=== PATIENT | male | born 1970 ===

== ENCOUNTER 2019-05-12 06:40 | Inpatient (IN) | payer MEDICARE, BC ==
[~2019-05-12] VITALS: Ht 175.3 cm; Wt 118.6 kg
[~2019-05-12 06:40] MED LIST: CHOL100012 PO; FOLI0.8T7 PO; LISI40TA PO; METO-99 PO; SEVE800T8 PO
[2019-05-12 07:27] VITALS: BP 134/85
[2019-05-12] MEDS ORDERED: THROMBIN 20,000 UNIT VIAL TP ONE (07:29)
[2019-05-12] MEDS ORDERED: HEPARIN 1,000 UNITS/ML, 10ML ONE ×2 (07:29→13:54)
[2019-05-12] MEDS ORDERED: PAPAVERINE 30 MG/ML, 2ML ONE (07:29)
[2019-05-12] MEDS ORDERED: BACITRACIN 50,000 UNIT ONE (07:29)
[2019-05-12] MEDS ORDERED: BUPIVACAINE/PF-EPI 0.5% 1:200K ONE (07:31)
[2019-05-12] MEDS ORDERED: FENTANYL PF 250 MCG/5ML ONE (08:12)
[2019-05-12] MEDS ORDERED: MIDAZOLAM 1 MG/ML, 2ML ONE (08:12)
[2019-05-12] MEDS ORDERED: CINA60TA PO (08:21)
[2019-05-12] MEDS ORDERED: HYDR-3240 PO (08:21)
[2019-05-12] MEDS ORDERED: GLYB5TAB3 PO (08:21)
[2019-05-12] MEDS ORDERED: ASPI-515 PO (08:21)
[2019-05-12] MEDS ORDERED: DOCU-131 PO (08:21)
[2019-05-12] MEDS ORDERED: ATOR-2 PO (08:21)
[2019-05-12] MEDS ORDERED: epogen (08:21)
[2019-05-12] MEDS ORDERED: OMEP-110 PO (08:21)
[2019-05-12] MEDS ORDERED: CALC667C PO (08:21)
[2019-05-12 08:32] LABS: BASOPHILS # (AUTO) 0.04 x10^3/uL (0-0.1); BASOPHILS % (AUTO) 0 % (0-1); EOSINOPHILS # (AUTO) 0.36 x10^3/uL (0-0.4); EOSINOPHILS % (AUTO) 3 % (1-7); LYMPHOCYTES # (AUTO) 1.36 x10^3/uL (1-3.4); LYMPHOCYTES % (AUTO) 12 % (22-44); MD NO; MEAN CORPUSCULAR HEMOGLOBIN 34.5 pg (27.5-34.5); MEAN CORPUSCULAR HGB CONC 33.2 g/dL (33.2-36.2); MEAN CORPUSCULAR VOLUME 103.7 fL (81-97); MEAN PLATELET VOLUME 7.2 fL (7.4-10.4); MONOCYTES # (AUTO) 0.77 x10^3/uL (0.2-0.8); MONOCYTES % (AUTO) 7 % (2-9); NEUTROPHILS # (AUTO) 9.07 x10^3/uL (1.8-6.8); NEUTROPHILS % (AUTO) 78 % (42-75); PLATELET COUNT 329 x10^3/uL (130-400); RED BLOOD COUNT 2.63 x10^6/uL (4.38-5.82); RED CELL DISTRIBUTION WIDTH 15.1 % (9.4-14.8)
[2019-05-12] MEDS ORDERED: LACTATED RINGERS 1,000 ML IV SCH (08:35)
[2019-05-12 08:43] LABS: ALANINE AMINOTRANSFERASE 38 U/L (12-78); ALBUMIN 3.1 g/dL (3.4-5.0); ANION GAP 14 mmol/L (5-15); CHLORIDE 100 mmol/L (98-107); INTERNATIONAL NORMALIZED RATIO 1.02 (0.93-1.1); PROTHROMBIN TIME 10.7 Seconds (9.6-11.5)
[2019-05-12 08:45] LABS: ALKALINE PHOSPHATASE 105 U/L (45-117); BILIRUBIN,TOTAL 0.4 mg/dL (0.2-1.0); TOTAL PROTEIN 7.1 g/dL (6.4-8.2)
[2019-05-12] MEDS ORDERED: OXYcodone 5 MG/5 ML ORAL.SOL UDC PO PRN (11:00)
[2019-05-12] MEDS ORDERED: METOPROLOL 1 MG/ML, 5ML IV PRN (11:00)
[2019-05-12] MEDS ORDERED: ONDANSETRON 2MG/ML, 2ML IV PRN (11:00)
[2019-05-12] MEDS ORDERED: FENTANYL PF 100 MCG/2ML IV PRN (11:00)
[2019-05-12] MEDS ORDERED: LORazepam 2 MG/ML, 1ML IVPush PRN (11:00)
[2019-05-12] MEDS ORDERED: LABETALOL 5MG/ML, 20ML IV PRN (11:00)
[2019-05-12] MEDS ORDERED: hydrALAzine 20 MG/ML, 1ML IV PRN (11:00)
[2019-05-12] MEDS ORDERED: PHENYLEPHRINE 10 MG/ML ONE (11:16)
[2019-05-12] MEDS ORDERED: PROPOFOL 10 MG/ML, 20ML ONE (11:16)
[2019-05-12] MEDS ORDERED: ROCURONIUM 10 MG/ML,10ML ONE (11:16)
[2019-05-12] MEDS ORDERED: CEFAZOLIN 1,000 MG ONE (11:16)
[2019-05-12] MEDS ORDERED: PROTAMINE SULFATE 10 MG/ML, 25ML ONE ×2 (14:49→14:50)
[2019-05-12] MEDS: LACTATED RINGERS 1,000 ML IV SCH ×2 (15:59→23:59)
[2019-05-12] MEDS ORDERED: HYDROmorphone 2 MG/ML, 1ML ONE (16:12)
[2019-05-12] MEDS ORDERED: OXYcodone 5 MG/5 ML ORAL.SOL UDC ONE (16:12)
[2019-05-12] MEDS: HYDROmorphone 2 MG/ML, 1ML IVPush PRN ×5 (16:19→17:05)
[2019-05-12] MEDS ORDERED: CALCIUM ACETATE 667 MG CAPSULE PO PRN (16:30)
[2019-05-12] MEDS ORDERED: ATORVASTATIN MC SCH (17:30)
[2019-05-12] MEDS: morphine SULFATE 10 MG/ML, 1ML IV PRN (18:28)
[2019-05-12 18:43] VITALS: BP 142/85
[2019-05-12] MEDS: OMEPRAZOLE 20 MG CAPSULE.DR PO SCH (20:50)
[2019-05-12] MEDS: ATORVASTATIN 80 MG TABLET PO SCH (20:50)
[2019-05-12] MEDS ORDERED: ATORVASTATIN 20 MG TABLET PO SCH (21:00)
[2019-05-13] VITALS (7 sets, daily range): BP systolic 98–126; BP diastolic 56–77
[2019-05-13 05:25] LABS: BASOPHILS # (AUTO) 0.03 x10^3/uL (0-0.1); BASOPHILS % (AUTO) 0 % (0-1); EOSINOPHILS # (AUTO) 0.36 x10^3/uL (0-0.4); EOSINOPHILS % (AUTO) 3 % (1-7); LYMPHOCYTES # (AUTO) 1.62 x10^3/uL (1-3.4); LYMPHOCYTES % (AUTO) 12 % (22-44); MD NO; MEAN CORPUSCULAR HEMOGLOBIN 35.6 pg (27.5-34.5); MEAN CORPUSCULAR HGB CONC 33.8 g/dL (33.2-36.2); MEAN CORPUSCULAR VOLUME 105.5 fL (81-97); MEAN PLATELET VOLUME 7.4 fL (7.4-10.4); MONOCYTES # (AUTO) 0.93 x10^3/uL (0.2-0.8); MONOCYTES % (AUTO) 7 % (2-9); NEUTROPHILS # (AUTO) 10.42 x10^3/uL (1.8-6.8); NEUTROPHILS % (AUTO) 78 % (42-75); PLATELET COUNT 296 x10^3/uL (130-400); RED CELL DISTRIBUTION WIDTH 15.2 % (9.4-14.8)
[2019-05-13] MEDS: ASPIRIN 81 MG TABLET EC PO SCH (05:27)
[2019-05-13 05:38] LABS: ALBUMIN 2.7 g/dL (3.4-5.0); ANION GAP 14 mmol/L (5-15); CHLORIDE 98 mmol/L (98-107)
[2019-05-13 05:41] LABS: % IRON SATURATION 27 % (20-55); ALANINE AMINOTRANSFERASE 31 U/L (12-78); ALKALINE PHOSPHATASE 66 U/L (45-117); BILIRUBIN,TOTAL 0.5 mg/dL (0.2-1.0); IRON LEVEL 46 mcg/dL (65-175); TOTAL IRON BINDING CAPACITY 170 mcg/dL (250-450); TOTAL PROTEIN 6.2 g/dL (6.4-8.2)
[2019-05-13] MEDS: CALCIUM ACETATE 667 MG CAPSULE PO SCH ×3 (07:53→17:06)
[2019-05-13] MEDS: HEPARIN 5,000 UNITS/ML, 1ML SQ SCH ×2 (07:54→17:09)
[2019-05-13] MEDS: LACTATED RINGERS 1,000 ML IV SCH ×3 (07:55→23:59)
[2019-05-13] MEDS: CINACALCET 30 MG TABLET PO SCH (08:51)
[2019-05-13] MEDS: OMEPRAZOLE 20 MG CAPSULE.DR PO SCH ×2 (08:51→22:00)
[2019-05-13] MEDS: MULTIVITS,STRESS FORMULA 1 TABLET PO SCH (08:51)
[2019-05-13] MEDS: DOCUSATE 100 MG CAPSULE PO SCH (08:51)
[2019-05-13] MEDS: LISINOPRIL 5 MG TABLET PO SCH (08:55)
[2019-05-13] MEDS: morphine SULFATE 10 MG/ML, 1ML IV PRN ×2 (11:45→18:05)
[2019-05-13] MEDS: ONDANSETRON 2MG/ML, 2ML IVPush PRN (17:58)
[2019-05-13] MEDS: ATORVASTATIN 80 MG TABLET PO SCH (21:59)
[2019-05-14 01:18] VITALS: BP 110/66
[2019-05-14] MEDS: HEPARIN 5,000 UNITS/ML, 1ML SQ SCH ×3 (01:54→16:25)
[2019-05-14] MEDS: ASPIRIN 81 MG TABLET EC PO SCH (06:39)
[2019-05-14] MEDS: CALCIUM ACETATE 667 MG CAPSULE PO SCH ×2 (07:45→12:08)
[2019-05-14] MEDS: LACTATED RINGERS 1,000 ML IV SCH (07:59)
[2019-05-14 08:15] VITALS: BP 101/63
[2019-05-14] MEDS: CINACALCET 30 MG TABLET PO SCH (08:56)
[2019-05-14] MEDS: DOCUSATE 100 MG CAPSULE PO SCH (08:56)
[2019-05-14] MEDS: LISINOPRIL 5 MG TABLET PO SCH (08:56)
[2019-05-14] MEDS: OMEPRAZOLE 20 MG CAPSULE.DR PO SCH ×2 (08:56→21:15)
[2019-05-14] MEDS: MULTIVITS,STRESS FORMULA 1 TABLET PO SCH (08:56)
[2019-05-14] MEDS ORDERED: MAGNESIUM SULFATE 4 GM in SODIUM CHLORIDE 0.9% 100 ML IV ONE (11:00)
[2019-05-14] MEDS ORDERED: MAGNESIUM SULFATE PMX 4GM/100M 100 ML IVPB SCH (11:00)
[2019-05-14] MEDS ORDERED: MAGNESIUM SULFATE PMX 4GM/100M 100 ML IVPB ONE (11:00)
[2019-05-14 12:40] VITALS: BP 101/66
[2019-05-14] MEDS: ONDANSETRON 2MG/ML, 2ML IVPush PRN (15:43)
[2019-05-14] MEDS: CALCIUM ACETATE 667 MG CAPSULE PO PRN (16:15)
[2019-05-14] MEDS: GlyBURIDE 5 MG TABLET PO SCH (16:15)
[2019-05-14 19:15] VITALS: BP 126/80
[2019-05-14] MEDS: ATORVASTATIN 80 MG TABLET PO SCH (21:15)
[2019-05-15] MEDS: HEPARIN 5,000 UNITS/ML, 1ML SQ SCH ×2 (01:12→09:27)
[2019-05-15 01:28] VITALS: BP 146/90
[2019-05-15 05:38] LABS: ALBUMIN 2.5 g/dL (3.4-5.0); ANION GAP 14 mmol/L (5-15); CALCIUM 8.4 mg/dL (8.5-10.1); CHLORIDE 93 mmol/L (98-107)
[2019-05-15 05:42] LABS: ALANINE AMINOTRANSFERASE 13 U/L (12-78); ALKALINE PHOSPHATASE 71 U/L (45-117); BILIRUBIN,TOTAL 0.9 mg/dL (0.2-1.0); TOTAL PROTEIN 6.8 g/dL (6.4-8.2)
[2019-05-15] MEDS: ASPIRIN 81 MG TABLET EC PO SCH (06:18)
[2019-05-15 07:24] VITALS: BP 106/72
[2019-05-15] MEDS: CALCIUM ACETATE 667 MG CAPSULE PO PRN (07:50)
[2019-05-15] MEDS: OMEPRAZOLE 20 MG CAPSULE.DR PO SCH (07:51)
[2019-05-15] MEDS: MULTIVITS,STRESS FORMULA 1 TABLET PO SCH (07:51)
[2019-05-15] MEDS: LISINOPRIL 5 MG TABLET PO SCH (07:51)
[2019-05-15] MEDS: CINACALCET 30 MG TABLET PO SCH (07:51)
[2019-05-15] MEDS: DOCUSATE 100 MG CAPSULE PO SCH (07:51)
[2019-05-15] MEDS: GlyBURIDE 5 MG TABLET PO SCH (07:52)
[2019-05-15] MEDS ORDERED: ATOR-2 PO (10:53)
[2019-05-15 12:27] VITALS: BP 89/56
[2019-05-15 14:04] VITALS: BP 124/81
== END 2019-05-15 17:04 | disposition home or self-care (01) | DRG 270 ==
LOC: ORIP 06:40 → 4NOR 17:39
PROVIDERS: ADMIT Surgery; ATTEND Surgery
PROC: 04CH0ZZ Extirpation of Matter from Right External Iliac Artery, Open Approach (ICD-10-PCS; 2019-05-12)
PROC: 04UK0KZ Supplement Right Femoral Artery with Nonautologous Tissue Substitute, Open Approach (ICD-10-PCS; 2019-05-12)
PROC: 4A133B1 Monitoring of Arterial Pressure, Peripheral, Percutaneous Approach (ICD-10-PCS; 2019-05-12)
PROC: 04CK0ZZ Extirpation of Matter from Right Femoral Artery, Open Approach (ICD-10-PCS; principal; 2019-05-12 08:30)
DX: E11.51 Type 2 diabetes mellitus with diabetic peripheral angiopathy without gangrene (principal); N18.6 End stage renal disease; I12.0 Hypertensive chronic kidney disease with stage 5 chronic kidney disease or end stage renal disease; I74.3 Embolism and thrombosis of arteries of the lower extremities; D63.1 Anemia in chronic kidney disease; D72.829 Elevated white blood cell count, unspecified; E11.22 Type 2 diabetes mellitus with diabetic chronic kidney disease; E66.9 Obesity, unspecified; Z68.38 Body mass index [BMI] 38.0-38.9, adult; E78.5 Hyperlipidemia, unspecified; E83.42 Hypomagnesemia; I70.221 Atherosclerosis of native arteries of extremities with rest pain, right leg; I99.8 Other disorder of circulatory system; G47.33 Obstructive sleep apnea (adult) (pediatric); I25.10 Atherosclerotic heart disease of native coronary artery without angina pectoris; Z82.49 Family history of ischemic heart disease and other diseases of the circulatory system; Z83.3 Family history of diabetes mellitus; Z99.2 Dependence on renal dialysis
CPT/HCPCS: 36415; 71045; 80053; 82306; 82728; 82962; 83540; 83550; 83735; 83970; 84100; 85025; 85347; 85610; 85730; 86706; 86803; 87340; 88305; 88311; 90945; 93005; G0378; J0690; J1170; J1644; J2250; J2405; J2704; J2720; J3010; C1768; J2270; J2370; J2440; J3475; J7120